=== PATIENT | female | born 1995 | race Caucasian/White ===

== ENCOUNTER 2021-10-09 20:18 | Inpatient (IN) | payer OTHER ==
[2021-10-09] MEDS ORDERED: Tranexamic Acid 1,000 MG in Sodium Chloride 0.9% 100 ML IV PRN (20:44)
[2021-10-09] MEDS ORDERED: Water For Irrigation,Sterile 1,000 ML Container IRR PRN (20:44)
[2021-10-09] MEDS ORDERED: Carboprost Tromethamine 250 MCG/1 ML Amp IM PRN (20:44)
[2021-10-09] MEDS ORDERED: Terbutaline 1 MG/ML SDV SUBCUT PRN (20:44)
[2021-10-09] MEDS ORDERED: Sodium Chloride 0.9% 20 ML SDV IV PRN (20:44)
[2021-10-09] MEDS ORDERED: Misoprostol 200 MCG Tab PO PRN (20:44)
[2021-10-09] MEDS ORDERED: Methylergonovine 0.2 MG/1 ML Amp IM PRN (20:44)
[2021-10-09] MEDS ORDERED: Lidocaine 1% 50 ML MDV INJECT PRN (20:44)
[2021-10-09] MEDS ORDERED: Sodium Chloride 0.9% 10 ML Syringe FLUSH PRN (20:44)
[2021-10-09] MEDS ORDERED: Butorphanol 1 MG/ML SDV IVPUSH PRN (20:44)
[2021-10-09] MEDS ORDERED: Nalbuphine 10 MG/1 ML Vial IVPUSH PRN (20:44)
[2021-10-09] MEDS ORDERED: Ondansetron 4 MG/2 ML SDV IVPUSH PRN (20:44)
[2021-10-09] MEDS ORDERED: Oxytocin/0.9 % Sodium Chloride 30 UNIT/500 ML BAG IV SCH (20:45)
[2021-10-09] MEDS: Lactated Ringers 1,000 ML IV SCH (22:11)
[2021-10-09] MEDS: Oxytocin/0.9 % Sodium Chloride 30 UNIT/500 ML BAG IV SCH (22:13)
[2021-10-10] MEDS: Lactated Ringers 1,000 ML IV SCH ×3 (03:37→10:36)
[2021-10-10] MEDS ORDERED: Ropivacaine HCl/PF 100 ML ONE (09:08)
[2021-10-10] MEDS ORDERED: ePHEDrine 50 MG/ML SDV IVPUSH PRN (09:46)
[2021-10-10] MEDS ORDERED: Ropivacaine HCl/PF 200 MG in Premix Bag 1 BAG EPIDUR SCH (10:00)
[2021-10-10] MEDS: Oxytocin/0.9 % Sodium Chloride 30 UNIT/500 ML BAG IV SCH (17:03)
[2021-10-10] MEDS ORDERED: Acetaminophen 500 MG Tab PO PRN (17:05)
[2021-10-10] MEDS ORDERED: Benzocaine/Menthol 20%-0.5% Spray 78 GM Cannister TOP PRN (17:05)
[2021-10-10] MEDS ORDERED: Ibuprofen 400 MG Tab PO PRN (17:05)
[2021-10-10] MEDS ORDERED: oxyCODONE 5 MG Tab PO PRN (17:05)
[2021-10-10] MEDS ORDERED: Lanolin 100% Cream 7 GM Tube TOP PRN (17:05)
[2021-10-10] MEDS ORDERED: Bisacodyl 10 MG Supp RECTAL PRN (17:05)
[2021-10-10] MEDS: Witch Hazel Medicated Pads 40/Jar TOP PRN (20:39)
[2021-10-10] MEDS: Docusate Sodium 100 MG Cap PO PRN (20:39)
[2021-10-10] MEDS: Ibuprofen 800 MG Tab PO PRN (20:40)
[2021-10-10] MEDS: Acetaminophen 500 MG Tab PO PRN (20:41)
[2021-10-11] MEDS: Ibuprofen 800 MG Tab PO PRN ×2 (04:53→18:33)
[2021-10-11] MEDS: Acetaminophen 500 MG Tab PO PRN ×2 (04:53→18:33)
[2021-10-11] MEDS: Docusate Sodium 100 MG Cap PO PRN ×2 (09:06→21:01)
[2021-10-12] MEDS: Ibuprofen 800 MG Tab PO PRN ×3 (03:18→23:52)
[2021-10-12] MEDS: Acetaminophen 500 MG Tab PO PRN ×3 (03:19→21:14)
[2021-10-12] MEDS: Witch Hazel Medicated Pads 40/Jar TOP PRN (09:13)
[2021-10-12] MEDS: Docusate Sodium 100 MG Cap PO PRN (09:13)
== END 2021-10-12 23:54 | disposition home or self-care (01) | DRG 807 ==
LOC: MW.OB 20:18 → MW.OBCHECK 20:18 → MW.OB 20:44 → MW.OBCHECK 20:44 → OBSVTOIN 10-10 16:40 → MW.OB 10-10 21:57
PROVIDERS: ADMIT Obstetrics & Gynecology; ATTEND Obstetrics & Gynecology
PROC: 10E0XZZ Delivery of Products of Conception, External Approach (ICD-10-PCS; principal; 2021-10-10)
PROC: 0KQM0ZZ Repair Perineum Muscle, Open Approach (ICD-10-PCS; 2021-10-10)
PROC: 10H07YZ Insertion of Other Device into Products of Conception, Via Natural or Artificial Opening (ICD-10-PCS; 2021-10-10)
PROC: 3E0R3BZ Introduction of Anesthetic Agent into Spinal Canal, Percutaneous Approach (ICD-10-PCS; 2021-10-10)
PROC: 00HU33Z Insertion of Infusion Device into Spinal Canal, Percutaneous Approach (ICD-10-PCS; 2021-10-10)
DX: O40.3XX0 Polyhydramnios, third trimester, not applicable or unspecified (principal); Z37.0 Single live birth; O48.0 Post-term pregnancy; Z3A.40 40 weeks gestation of pregnancy; O77.0 Labor and delivery complicated by meconium in amniotic fluid; O70.1 Second degree perineal laceration during delivery; Z86.16 Personal history of COVID-19
CPT/HCPCS: 01967; 36415; 51702; 59025; 59409; 82803; 85014; 85018; 85027; 86592; 86850; 86900; 86901; A9270-GY; J2405; J2590; J2795; J7120; U0002

== ENCOUNTER 2024-03-08 09:39 | Day surgery (SDC) | payer OTHER ==
[~2024-03-08 09:39] MED LIST: Sodium Chloride 0.9% 10 ML Syringe FLUSH PRN; Sodium Chloride 0.9% 2.5 ML Syringe FLUSH PRN; Sodium Chloride 0.9% 20 ML SDV IV PRN
[2024-03-08] MEDS: Lactated Ringers 1,000 ML IV SCH (10:10)
[2024-03-08] MEDS ORDERED: propofoL 50 ML ONE (10:49)
== END 2024-03-08 12:00 | disposition home or self-care (01) ==
LOC: MW.SDS 09:39
PROVIDERS: ATTEND Surgery
DX: K52.9 Noninfective gastroenteritis and colitis, unspecified (principal); K62.89 Other specified diseases of anus and rectum; K62.5 Hemorrhage of anus and rectum; K21.9 Gastro-esophageal reflux disease without esophagitis; F41.9 Anxiety disorder, unspecified; Z91.018 Allergy to other foods; Z79.899 Other long term (current) drug therapy
CPT/HCPCS: 45380; 81025; J2704; J7120; 00811